=== PATIENT | male | born 1965 | race Caucasian/White ===

== ENCOUNTER 2016-06-16 14:07 | Emergency (ER) | payer BC ==
[2016-06-16] MEDS ORDERED: Sodium Chloride 0.9% 10 ML Syringe FLUSH PRN (14:35)
[2016-06-16] MEDS ORDERED: Sodium Chloride 0.9% 2.5 ML Syringe FLUSH PRN (14:35)
--- NOTE | 2016-06-16 14:42 | EDM.PDOC ---
ED HPI GENERAL MEDICAL PROBLEM - General Chief Complaint: Genitourinary Problem Stated Complaint: KIDNEY STONE Time Seen by Provider: 06/16/16 14:27 - History of Present Illness INITIAL COMMENTS - FREE TEXT/NARRATIVE: HISTORY AND PHYSICAL: History of present illness: The patient is a 50-year-old male with a history of kidney stones who presents with bilateral lower back pain that has been ongoing for the last one week off- and-on intensity. The patient states he has only had lithotripsy once and never had to have a ureteral stent placed but he has had kidney stones in the past. The patient says that this does not exactly feel like a kidney stone but when he gets kidney stone pain it is low and not in the flank. He has not had any hematuria dysuria frequency or urgency and no nausea vomiting fever or anterior abdominal pain. The pain is localized to the lower back it does not radiate. He' s had no testicular pain or swelling. The patient has not taken anything today for pain. 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 The back pain he is having does not radiate to his butt or legs and he has no neurosensory changes or weakness in his legs. He has no bowel or bladder disturbances. Patient has been eating and drinking normally but admits that he does not drink much water and mostly caffeine. Review of systems: As per history of present illness and below otherwise all systems reviewed and negative. Past medical history: As per history of present illness and as reviewed below otherwise noncontributory. Surgical history: As per history of present illness and as reviewed below otherwise noncontributory. Social history: No reported history of drug or alcohol abuse. Family history: As per history of present illness and as reviewed below otherwise noncontributory. Physical exam: General: Well-developed well-nourished male nontoxic in vital signs have been reviewed by me. He moves in the ED without any distress HEENT: Atraumatic, normocephalic, negative for conjunctival pallor or scleral icterus, mucous membranes moist, throat clear, neck supple, nontender, trachea midline. Lungs: Clear to auscultation, breath sounds equal bilaterally, chest nontender. Heart: S1S2, regular, negative for clicks, rubs, or JVD. Abdomen: Soft, nondistended, nontender. Negative for masses or hepatosplenomegaly. Negative for costovertebral tenderness. Pelvis: Stable nontender. Genitourinary: Deferred. Rectal: Deferred. Extremities: Atraumatic, negative for cords or calf pain. Neurovascular unremarkable. Neuro: Awake, alert, oriented. Cranial nerves II through XII unremarkable. Cerebellum unremarkable. Motor and sensory unremarkable throughout. Exam nonfocal. Dorsi and plantarflexion are intact 5/5 bilaterally in patellar reflexes are +2 bilaterally. Gait was normal in the ED Back: There are no midline step-offs tenderness or defects of the thoracic or lumbar spine no posterior pelvis or SI joint tenderness. On palpation of the lumbar paraspinal musculature I am unable to reproduce the pain exactly but the patient says there is some mild tenderness there. Diagnostics: UA urine culture CBC CMP CT scan of the abdomen and pelvis Therapeutics: The patient declined pain medications IV fluids and an IV Patient and are aware of all results of testing including a CT scan which indicates several small kidney stones in the left kidney and one 2.1 x 2.0 cm stone in the lower pole infundibulum with localized hydronephrosis. There are no stones in the ureter. I told the patient he might be sensitive and feeling some of this discomfort and that he also could have a component of lumbar back pain. I will prescribe him Toradol and Flexeril to use at home and I advised him on hydration and reasons to return to the ED. Impression: Bilateral lower back pain, left kidney stones intrarenal with infundibular stone in the lower pole Definitive disposition and diagnosis as appropriate pending reevaluation and review of above. Treatments HEALTH SERVICES MANAGER: Reports: NSAIDS Other Treatments HEALTH SERVICES MANAGER: Advil @ 8am bilateral flank Pain Score (Numeric/FACES): 6 - Related Data Allergies Allergy/AdvReac Type Severity Reaction Status Date / Time No Known Allergies Allergy Verified 06/16/16 14:15 Home Meds: Home Meds . [No Known Home Meds] 07/22/15 [History] Past Medical History - Past Health History Medical/Surgical History: Denies Medical/Surgical History HEENT History: Reports: None Cardiovascular History: Reports: None Respiratory History: Reports: None Gastrointestinal History: Reports: None Genitourinary History: Reports: None Musculoskeletal History: Reports: None Neurological History: Reports: None Psychiatric History: Reports: None Endocrine/Metabolic History: Reports: None Hematologic History: Reports: None Oncologic (Cancer) History: Reports: None Dermatologic History: Reports: None - Infectious Disease History Infectious Disease History: Reports: None - Past Surgical History GI Surgical History: Reports: Hernia, inguinal Social & Family History - Family History Family Medical History: Noncontributory - Tobacco Use Smoking Status *Q: Current Every Day Smoker Years of Tobacco use: 30 Packs/Tins Daily: 1 - Caffeine Use Caffeine Use: Reports: Coffee, Soda - Recreational Drug Use Recreational Drug Use: No ED ROS GENERAL - Review of Systems Review Of Systems: ROS reveals no pertinent complaints other than HPI. ED EXAM, GENERAL - Physical Exam Exam: See Below (See dictation) Course - Vital Signs Last Recorded V/S: Last Vital Signs Temp 36.5 C 06/16/16 14:15 Pulse 88 06/16/16 14:15 Resp 16 06/16/16 14:15 BP 122/82 06/16/16 14:15 Pulse Ox 98 06/16/16 14:15 - Orders/Labs/Meds Orders: Active Orders 24 hr Category Date Time Status Abdomen Pelvis wo Cont [CT] Stat Exams 06/16/16 14:37 Taken CULTURE URINE [RM] Stat Lab 06/16/16 14:15 Received Labs: Laboratory Tests 06/16/16 06/16/16 06/16/16 Range/Units 14:15 14:45 14:45 WBC 7.59 (4.0-11.0) K/uL RBC 4.87 (4.50-5.90) M/uL Hgb 15.4 (13.0-17.0) g/dL Hct 44.8 (38.0-50.0) % MCV 92.0 (80.0-98.0) fL MCH 31.6 (27.0-32.0) pg MCHC 34.4 (31.0-37.0) g/dL RDW Std Deviation 45.8 (28.0-62.0) fl RDW Coeff of [place] 14 (11.0-15.0) % Plt Count 237 (150-400) K/uL MPV 9.80 (7.40-12.00) fL Neut % (Auto) 65.2 (48.0-80.0) % Lymph % (Auto) 23.3 (16.0-40.0) % [place] % (Auto) 5.8 (0.0-15.0) % Eos % (Auto) 4.6 (0.0-7.0) % Baso % (Auto) 1.1 (0.0-1.5) % Neut # 5.0 (1.4-5.7) K/uL Lymph # 1.8 (0.6-2.4) K/uL [place] # 0.4 (0.0-0.8) K/uL Eos # 0.4 (0.0-0.7) K/uL Baso # 0.1 (0.0-0.1) K/uL Nucleated RBC % 0.0 /100WBC Nucleated RBCs # 0 K/uL Sodium 141 (136-146) mmol/L Potassium 4.2 (3.5-5.1) mmol/L Chloride 108 (98-110) mmol/L Carbon Dioxide 25 (21-31) mmol/L BUN 16 (6.0-23.0) mg/dL Creatinine 1.0 (0.6-1.5) mg/dL Est Cr Clr Drug Dosing 102.75 mL/min Estimated GFR (MDRD) > 60.0 ml/min Glucose 77 (60-110) mg/dL Calcium 9.4 (8.8-10.8) mg/dL Total Bilirubin 0.3 (0.1-1.5) mg/dL AST 17 (5-40) IU/L ALT 21 (8-54) IU/L Alkaline Phosphatase 73 (40-150) Total Protein 6.7 (6.0-8.0) g/dL Albumin 3.9 (3.5-5.0) g/dL Globulin 2.8 (2.0-3.5) g/dL Albumin/Globulin Ratio 1.4 (1.3-2.8) Urine Color YELLOW Urine Appearance CLEAR Urine pH 5.5 (5.0-8.0) Ur Specific [place] 1.025 (1.001-1.035) Urine Protein NEGATIVE (NEGATIVE) mg/dL Urine Glucose (UA) NEGATIVE (NEGATIVE) mg/dL Urine Ketones NEGATIVE (NEGATIVE) mg/dL Urine Occult Blood TRACE-LYSED (NEGATIVE) Urine Nitrite NEGATIVE (NEGATIVE) Urine Bilirubin NEGATIVE (NEGATIVE) Urine Urobilinogen 0.2 (<2.0) EU/dL Ur Leukocyte Esterase NEGATIVE (NEGATIVE) Urine RBC 2-4 (0-2/HPF) Urine WBC 0-2 (0-5/HPF) Ur Epithelial Cells FEW (NONE-FEW) Urine Bacteria RARE (NEGATIVE) Meds: Medications Discontinued Medications Generic Name Dose Route Start Last Admin Trade Name Jaqueline PRN Reason Stop Dose Admin Sodium Chloride 10 ml 06/16/16 14:35 Saline Flush FLUSH ASDIRECTED PRN Keep Vein Open Sodium Chloride 2.5 ml 06/16/16 14:35 Saline Flush FLUSH ASDIRECTED PRN Keep Vein Open Departure - Departure Time of Disposition: 15:51 Disposition: Home, Self-Care 01 Condition: good Clinical Impression: Kidney stones Lower back pain Qualifiers: Chronicity: unspecified Back pain laterality: bilateral Sciatica presence: without sciatica Qualified Code(s): M54.5 - Low back pain Forms: ED Department Discharge Additional Instructions: The following information is given to patients seen in the emergency department who are being discharged to home. This information is to outline your options for follow-up care. We provide all patients seen in our emergency department with a follow-up referral. The need for follow-up, as well as the timing and circumstances, are variable depending upon the specifics of your emergency department visit. If you don't have a primary care physician on staff, we will provide you with a referral. We always advise you to contact your personal physician following an emergency department visit to inform them of the circumstance of the visit and for follow-up with them and/or the need for any referrals to a consulting specialist. The emergency department will also refer you to a specialist when appropriate. This referral assures that you have the opportunity for followup care with a specialist. All of these measure are taken in an effort to provide you with optimal care, which includes your followup. Under all circumstances we always encourage you to contact your private physician who remains a resource for coordinating your care. When calling for followup care, please make the office aware that this follow-up is from your recent emergency room visit. If for any reason you are refused follow-up, please contact the [facility] emergency department at and ask to speak to the emergency department charge nurse. [facility] Primary care- Internal Medicine and Family [address] [address] [facility] [address] [place] [address] Please push hydration such as water Gatorade and juices and try to avoid caffeinated products. Use pain medications as needed and directed and please call and followup with primary care and urology as we discussed. Return to the ER as needed and as discussed - My Orders Last 24 Hours: My Active Orders 06/16/16 14:15 CULTURE URINE [RM] Stat 06/16/16 14:37 Abdomen Pelvis wo Cont [CT] Stat - Assessment/Plan Last 24 Hours: My Active Orders 06/16/16 14:15 CULTURE URINE [RM] Stat 06/16/16 14:37 Abdomen Pelvis wo Cont [CT] Stat
[2016-06-16 15:12] LABS: CHLORIDE,CL 108 mmol/L (98-110); SODIUM,NA 141 mmol/L (136-146)
[2016-06-16 16:08] VITALS: BP 113/71
--- NOTE | 2016-06-17 19:28 | CT ---
EXAM DATE: 06/16/16 PATIENT'S AGE: 50 Patient: FAYE LOYD Facility: [place], [place] Site . Site : 1965 Study: CT Abdomen/Pelvis [id number] 3:05:18 PM Ordering Physician: Aylin Muhammad Final Report: INDICATION: Left flank pain; history of kidney stones . Comparison: None. Technique: CT abdomen and pelvis without intravenous or oral contrast; coronal and sagittal reformats. Findings: No abnormal intra pulmonary nodular densities through the lung bases. No evidence of pleural effusion. Normal size cardiac silhouette without any evidence of pericardial effusion. No focal hepatic or splenic pathology. No pancreatic pathology. Gallbladder is unremarkable. No adrenal pathology. Right kidney is normal in structure with no obstructive uropathy or perinephric pathology. Stones identified in the left lower pole infundibulum measuring 2.1 x 2 cm in size with localized hydronephrosis left lower pole. Nonobstructing calculi in the left lower pole calices. No perinephric pathology. No evidence of left ureteral obstruction. No evidence of abdominal or pelvic ascites. No retroperitoneal lymphadenopathy. Impression: 1. A 2.1 x 2 cm stone left lower pole infundibulum with localized hydronephrosis. 2. No evidence of ureteral stones on either side. 3. No other abnormalities are identified. Dictated by Savannah Gentile MD @ Jun 16 2016 3:22PM (Electronic Signature) Report Signed by Proxy and Original Signed Document filed in the Medical Record. [facility]
== END 2016-06-16 16:08 | disposition home or self-care (01) ==
LOC: MW.ED 14:07
DX: M54.5 Low back pain (principal); N13.2 Hydronephrosis with renal and ureteral calculous obstruction; F17.210 Nicotine dependence, cigarettes, uncomplicated; Z98.890 Other specified postprocedural states
CPT/HCPCS: 36415; 74176; 74176-26; 80053; 81001; 85025; 87086; 99283; 99284-25